=== PATIENT | female | born 1940 | race American Indian/Alaskan Native ===

== ENCOUNTER 2021-11-13 12:25 | Emergency (ER) | payer MEDICARE, OTHER ==
--- NOTE | 2021-11-13 13:29 | Emergency Department Report ---
ED General Adult HPI - General Chief complaint: Medical Clearance Stated complaint: CHEST SWELLING Time Seen by Provider: 11/13/21 12:57 Source: patient Mode of arrival: Ambulatory Limitations: No Limitations - History of Present Illness Initial comments: This is a pleasant 81-year-old female with medical history of coronary artery disease, peripheral vascular disease who was AAA stenting, hypertension, hyperlipidemia who recently had pacemaker placement on November 03 due to bradycardic, hypotension, fatigue; found to be complete heart block. Since discharge patient denies to be any discomfort or pain is currently not any any anticoagulation medication. Patient notes that her device became swollen today and decided to come in for a check. Patient denies any discomfort at the device site. Patient also denies any discharge. Patient denies any fever chills night sweat dizziness blurred vision lightheadedness headache to the appointment no sore throat loss of taste or smell chest pain palpitation short of breath cough abdominal pain nausea vom iting diarrhea constipation dysuria myalgia arthralgia heat or cold intolerance. - Related Data Home Medications Medication Instructions Recorded Confirmed Last Taken Aspirin [Vazalore] 81 mg PO DAILY 10/31/21 11/03/21 Unknown lisinopriL [Lisinopril] 20 mg PO DAILY 10/31/21 11/03/21 Unknown Previous Rx's Medication Instructions Recorded Last Taken Type QUEtiapine [SEROquel] 25 mg PO BID #60 tablet 11/03/21 Unknown Rx amLODIPine 5 mg PO QDAY #30 tablet 11/03/21 Unknown Rx Allergies Allergy/AdvReac Type Severity Reaction Status Date / Time IV dye Allergy Severe Anaphylaxis Uncoded 10/31/21 21:04 ED Review of Systems ROS: Stated complaint: CHEST SWELLING Other details as noted in HPI Comment: All other systems reviewed and negative Constitutional: no symptoms reported, see HPI Eyes: as per HPI ENT: as per HPI Respiratory: no symptoms reported, see HPI Cardiovascular: as per HPI Endocrine: no symptoms reported, see HPI Gastrointestinal: as per HPI Genitourinary: as per HPI Musculoskeletal: as per HPI Skin: as per HPI Neurological: as per HPI Psychiatric: as per HPI Hematological/Lymphatic: as per HPI ED Past Medical Hx - Past Medical History Previous Medical History?: Yes Hx Hypertension: Yes - Surgical History Hx Coronary Stent: Yes Hx Pacemaker: Yes (10 years ago-battery ; has temp) Hx Appendectomy: Yes - Social History Smoking Status: Current Every Day Smoker - Medications Home Medications: Home Medications Medication Instructions Recorded Confirmed Last Taken Type Aspirin [Vazalore] 81 mg PO DAILY 10/31/21 11/03/21 Unknown History lisinopriL [Lisinopril] 20 mg PO DAILY 10/31/21 11/03/21 Unknown History QUEtiapine [SEROquel] 25 mg PO BID #60 tablet 11/03/21 Unknown Rx amLODIPine 5 mg PO QDAY #30 tablet 11/03/21 Unknown Rx ED Physical Exam - General Limitations: No Limitations General appearance: alert, in no apparent distress - Head Head exam: Present: atraumatic, normocephalic, normal inspection - Eye Eye exam: Present: normal appearance, PERRL, EOMI Pupils: Present: normal accommodation - ENT ENT exam: Present: normal exam, mucous membranes moist - Neck Neck exam: Present: normal inspection, full ROM - Respiratory Respiratory exam: Present: normal lung sounds bilaterally - Cardiovascular Cardiovascular Exam: Present: regular rate, bradycardia - GI/Abdominal GI/Abdominal exam: Present: soft - Extremities Exam Extremities exam: Present: normal inspection, full ROM - Back Exam Back exam: Present: normal inspection, full ROM - Neurological Exam Neurological exam: Present: alert, altered, oriented X3, CN II-XII intact - Psychiatric Psychiatric exam: Present: normal affect, normal mood - Skin Skin exam: Present: other (Device site appears swollen; incision site appears clean dry and intact. Swollen area w/o erythatmosu rash; no tender on palpation. ) ED Course Vital Signs 11/13/21 11/13/21 11/13/21 13:02 13:09 13:16 Temperature 98.7 F Pulse Rate 54 L 57 L 56 L Respiratory 16 10 L 16 Rate Blood Pressure 169/63 Blood Pressure 176/70 [Right] O2 Sat by Pulse 94 93 98 Oximetry 11/13/21 11/13/21 11/13/21 13:30 13:46 14:00 Temperature Pulse Rate 54 L 54 L 54 L Respiratory 9 L 18 13 Rate Blood Pressure 176/71 150/56 164/55 Blood Pressure [Right] O2 Sat by Pulse 97 95 99 Oximetry 11/13/21 11/13/21 11/13/21 14:16 14:50 15:00 Temperature Pulse Rate 54 L 54 L Respiratory 14 17 Rate Blood Pressure 173/60 173/65 164/56 Blood Pressure [Right] O2 Sat by Pulse 96 95 95 Oximetry 11/13/21 11/13/21 15:16 15:44 Temperature Pulse Rate 54 L Respiratory 18 Rate Blood Pressure 185/81 Blood Pressure [Right] O2 Sat by Pulse 98 99 Oximetry ED Medical Decision Making - Lab Data Result diagrams: 11/13/21 14:09 11/13/21 14:09 - EKG Data -: EKG Interpreted by Me (AV dual-paced complexes) - Medical Decision Making Patient decided to leave AGAINST MEDICAL ADVICE despite knowingthis could be serious such as infections versus overall complication. However patient does not wait for the labs to return. I have informed patient that if she changes her mind she is to return to the ER immediately. Critical care attestation.: If time is entered above; I have spent that time in minutes in the direct care of this critically ill patient, excluding procedure time. ED Disposition Clinical Impression: Pacemaker complications Disposition: 07 LEFT AGAINST MEDICAL ADVICE Is pt being admited?: No Does the pt Need Aspirin: No Condition: Stable Forms: AMA Form Time of Disposition: 16:28
--- NOTE | 2021-11-13 15:04 | Cat Scan Report ---
CT CHEST WITHOUT CONTRAST INDICATION / CLINICAL INFORMATION: Recent pacemaker placement on 11/03/2021. Patient presents with swel ling at site of pacemaker. TECHNIQUE: Axial CT images were obtained through the chest without contrast. All CT scans at this [facility] ation are performed using CT dose reduction for ALARA by means of automated exposure control. COMPARISON: 2 views of the chest from 11/18/2021. FINDINGS: HEART: No significant abnormality. There is stable positioning of the leads of a left pacemaker. CORONARY ARTERY CALCIFICATION: Present -- Severe. THORACIC AORTA: Severe atherosclerotic calcification without acute abnormality. MEDIASTINUM / ESME: No significant abnormality. PLEURA: No pleural effusion. No pneumothorax. LUNGS: There is moderate emphysema with subsegmental opacities seen along the right upper lobe that a re favored to represent atelectasis/scarring. The lungs are otherwise clear. ADDITIONAL FINDINGS: Mild edema is seen surrounding the pacemaker generator. No organized fluid colle ction or other significant abnormality is identified at that site. UPPER ABDOMEN: No acute findings. There is mild atherosclerosis with a partially visualized aortic st ent graft. Nonobstructive bilateral nephrolithiasis is noted. SKELETAL SYSTEM: No acute findings. The bones are demineralized with severe degenerative changes of t he shoulders and moderate degenerative changes of the spine. IMPRESSION: 1. Mild edema surrounding the left pacemaker without other acute findings. 2. Additional findings as above. Signer Name: Carter Morales MD Signed: 11/13/2021 3:00 PM Workstation Name: [id number]
[2021-11-13 15:12] LABS: INR 0.86 (0.87-1.13)
[2021-11-13 15:13] LABS: Partial Thromboplastin Time 29.2 Sec. (24.2-36.6)
[2021-11-13 15:17] LABS: Hematocrit 41.9 % (30.3-42.9); Hemoglobin 13.8 gm/dl (10.1-14.3); Mean Corpuscular HGB Conc 33 % (30-34); Mean Corpuscular Volume 106 fl (79-97); Platelet Count 293 K/mm3 (140-440); Red Blood Count 3.95 M/mm3 (3.65-5.03); Red Cell Distribution Width 12.9 % (13.2-15.2)
[2021-11-13 15:23] LABS: BUN/Creatinine Ratio TNR; Blood Urea Nitrogen TNR mg/dL (7-17); Calcium TNR mg/dL (8.4-10.2); Hemolysis Index TNR
[2021-11-13 16:35] VITALS: BP 174/49
[2021-11-13 16:36] LABS: Blood Urea Nitrogen 12 mg/dL (7-17); Calcium 9.6 mg/dL (8.4-10.2); Hemolysis Index 13
[2021-11-13 16:37] LABS: BUN/Creatinine Ratio 20
--- NOTE | 2021-11-16 09:56 | Electrocardiograph Report ---
[facility] Test Date: 2021-11-13 Test Time: 12:58:48 Pat Name: CHANTEL RODRÍGUEZ Department: Room: Gender: F Service Employee: [employer] : 1940 Requested By: GURPREET DELANEY Order Number: [id number] Reading MD: Ernesto Chen Measurements Intervals [place] Rate: 55 P: 151 TN: 195 QRS: 244 QRSD: 146 T: 83 QT: 470 QTc: 450 Interpretive Statements Atrial-ventricular dual-paced complexes Compared to ECG 11/01/2021 07:35:51 Atrial pacing is now evident Electronically Signed On 11-16-2021 9:56:15 EDT by Ernesto Chen
== END 2021-11-13 16:35 | disposition left against medical advice (07) ==
LOC: ED 12:25
DX: T82.897A Other specified complication of cardiac prosthetic devices, implants and grafts, initial encounter (principal); I10 Essential (primary) hypertension; R22.2 Localized swelling, mass and lump, trunk; Z90.89 Acquired absence of other organs; I25.10 Atherosclerotic heart disease of native coronary artery without angina pectoris; F17.290 Nicotine dependence, other tobacco product, uncomplicated; Z91.041 Radiographic dye allergy status; Y83.9 Surgical procedure, unspecified as the cause of abnormal reaction of the patient, or of later complication, without mention of misadventure at the time of the procedure; Y92.89 Other specified places as the place of occurrence of the external cause
CPT/HCPCS: 36415; 71250; 80048; 85027; 85610; 85730; 87040; 93005; 99284